=== PATIENT | female | born 1990 | race Hispanic/Latino ===

== ENCOUNTER 2019-10-27 09:25 | Outpatient (CLI) | payer OTHER ==
--- NOTE | 2019-10-27 13:49 | ULT ---
OB ULTRASOUND GREATER THAN 14 WEEKS: HISTORY: Anatomy. FINDINGS: Single viable intrauterine fetus noted in breech presentation. Cervix appears unremarkable. Placent a appears to be primarily right-sided with anterior and posterior locations. heart rate 132 b. p.m. Amniotic fluid is within normal limits. Cervical length is unremarkable. ANATOMY: Visualized brain, 4-chamber heart, 3-vessel cord, stomach, bladder, kidneys, spine, and extremi ty regions were unremarkable. BIOMETRY: BPD 4.2 cm-18 weeks 6 days Head circumference 16.1 cm-19 weeks 0 days Abdominal circumference 13.5 cm-19 weeks 0 days Femur length 2.8 cm-18 weeks 4 days IMPRESSION: Single viable intrauterine fetus at 18 weeks 6 days. Estimated date of delivery 03/23/2020. Estimate d weight 255 gm. POS: RRE
== END 2019-10-27 09:26 | disposition home or self-care (01) ==
LOC: BICULT 09:25
PROVIDERS: ATTEND Family Medicine
DX: O09.92 Supervision of high risk pregnancy, unspecified, second trimester (principal); Z3A.18 18 weeks gestation of pregnancy
CPT/HCPCS: 76805

== ENCOUNTER 2020-03-11 09:39 | Outpatient (CLI) | payer OTHER ==
[2020-03-12 12:00] LABS: SARS-CoV-2 MS2 Positive; SARS-CoV-2 N Gene Negative; SARS-CoV-2 S Gene Negative; SARS-CoV-2 by NAA Not Detected (NotDetected); SARS-CoV-2 orf1ab Negative
== END 2020-03-11 09:40 | disposition home or self-care (01) ==
LOC: LABBT 09:39
PROVIDERS: ATTEND Family Medicine
DX: Z20.828 Contact with and (suspected) exposure to other viral communicable diseases (principal)
CPT/HCPCS: 87635; U0003

== ENCOUNTER 2020-03-15 10:08 | Inpatient (IN) | payer MEDICAID, OTHER, SELFPAY ==
[2020-03-15] MEDS ORDERED: Ondansetron PF 4 MG/2 ML Vial IVP PRN ×4 (10:43→16:42)
[2020-03-15] MEDS ORDERED: Bicitra 30 ML UDCUP PO SCH (10:43)
[2020-03-15] MEDS ORDERED: Promethazine HCl 25 MG/ML VIAL IM PRN ×4 (10:43→16:42)
[2020-03-15] MEDS ORDERED: hydrALAZINE 20 MG/ML VIAL SLOW IVP PRN ×2 (10:43→16:42)
[2020-03-15] MEDS ORDERED: CEFAZOLIN 2 GM in Premix Bag 1 BAG IVPB SCH (10:43)
[2020-03-15] MEDS: Lactated Ringer's 1,000 ML IV SCH ×2 (10:50→23:33)
[2020-03-15 11:20] LABS: Hemoglobin 11.3 g/dL (12.0-16.0); Mean Corpuscular HGB CONC 33.7 g/dL (32.0-36.0); Mean Corpuscular Hemoglobin 28.9 pg (27.0-31.0); Mean Corpuscular Volume 85.8 fL (78.0-98.0); Mean Platelet Volume 8.8 fL (7.4-10.4); Platelet Count 234 thou/uL (130-400); RBC Distribution Width 13.6 % (11.5-14.5); White Blood Cell (WBC) Count 7.6 thou/uL (4.8-10.8)
[2020-03-15 11:22] VITALS: BMI 23.8
[2020-03-15] MEDS ORDERED: Bicitra 30 ML UDCUP ONE (11:34)
[2020-03-15] MEDS ORDERED: ePHEDrine 50 MG/ML VIAL ONE (11:39)
[2020-03-15] MEDS ORDERED: Morphine PF 10 MG/10 ML VIAL ONE (11:39)
[2020-03-15] MEDS ORDERED: Oxytocin 10 UNITS/ML VIAL ONE (11:39)
[2020-03-15] MEDS ORDERED: PHENYLEPHRINE-NS 100 MCG/ML 10 ML SYRINGE ONE ×2 (11:39→12:30)
[2020-03-15 11:59] LABS: Syphilis Antibody Nonreactive (Nonreactive); Syphilis Antibody Index 0.02 S/CO (<1.00 Non-Reactive)
[2020-03-15 12:00] LABS: HBSAg Index 0.16 S/CO (0-0.99); Hep B Surf Ag Non-Reactive S/CO (NonReactive)
[2020-03-15] MEDS ORDERED: Ondansetron PF 4 MG/2 ML Vial ONE ×2 (12:30→13:27)
[2020-03-15] MEDS ORDERED: Dexamethasone 20 MG/5 ML VIAL ONE (12:30)
[2020-03-15] MEDS ORDERED: Succinylcholine 200 MG/10 ml SYRINGE FS ONE (12:30)
[2020-03-15] MEDS ORDERED: EPHEDRINE 25 MG/5 ML SYRINGE ONE (12:30)
[2020-03-15] MEDS ORDERED: PROPOFOL 200 MG/20 ML VIAL ONE (12:30)
[2020-03-15] MEDS ORDERED: Methylergonovine 0.2 MG/ML VIAL ONE ×2 (13:18→15:03)
[2020-03-15] MEDS ORDERED: Fentanyl 100 MCG/2 ML VIAL ONE ×4 (13:23→14:31)
[2020-03-15] MEDS ORDERED: Carboprost 250 MCG/ML AMP ONE ×2 (13:23→15:03)
[2020-03-15] MEDS ORDERED: Misoprostol 200 MCG TAB ONE ×2 (13:23→15:10)
[2020-03-15] MEDS ORDERED: Dexamethasone 4 mg/ml Vial ONE (13:27)
[2020-03-15] MEDS ORDERED: Naloxone HCl 0.4 mg/ml Vial IVP PRN ×2 (14:06)
[2020-03-15] MEDS ORDERED: Meperidine HCl/PF 25 MG/ML VIAL SLOW IVP PRN (14:06)
[2020-03-15] MEDS ORDERED: HYDROmorphone 2 MG/ML VIAL SLOW IVP PRN (14:06)
[2020-03-15] MEDS ORDERED: Ondansetron HCl/PF 4 MG/2 ML Vial IVP PRN (14:06)
[2020-03-15] MEDS ORDERED: L&D-Morphine 4 MG/ML VIAL SLOW IVP PRN (14:06)
[2020-03-15] MEDS ORDERED: Ketorolac Tromethamine 30 MG/ML VIAL IVP PRN (14:06)
[2020-03-15] MEDS ORDERED: Promethazine HCl 25 MG SUPP PR PRN (14:06)
[2020-03-15] MEDS ORDERED: diphenhydrAMINE 50 MG/ML VIAL IVP PRN ×2 (14:06→14:28)
[2020-03-15] MEDS ORDERED: Naloxone HCl 0.4 mg/ml Vial IV PRN ×2 (14:06→14:28)
[2020-03-15] MEDS ORDERED: Ketorolac Tromethamine 30 MG/ML VIAL IVP SCH (14:15)
[2020-03-15] MEDS ORDERED: Communication Order-Pharmacy FS SCH ×2 (14:15→14:30)
[2020-03-15] MEDS ORDERED: Ketorolac Tromethamine 30 MG/ML VIAL ONE (14:25)
[2020-03-15] MEDS ORDERED: fentaNYL Citrate/PF 2,000 MCG in Sodium Chloride 0.9% 60 ML IV PRN (14:28)
[2020-03-15] MEDS ORDERED: diphenhydrAMINE 25 MG CAP PO PRN ×2 (14:28→16:42)
[2020-03-15] MEDS ORDERED: diphenhydrAMINE 50 MG/ML VIAL IM PRN (14:28)
[2020-03-15] MEDS ORDERED: Zolpidem Tartrate 5 MG TAB PO PRN (14:28)
[2020-03-15] MEDS ORDERED: Fentanyl 100 MCG/2 ML VIAL SLOW IVP SCH (15:45)
[2020-03-15] MEDS ORDERED: NS / Oxytocin 40 units/1000ml 1,000 ML ONE (16:08)
[2020-03-15] MEDS ORDERED: Bisacodyl 10 MG SUPP PR PRN (16:42)
[2020-03-15] MEDS ORDERED: Meperidine HCl/PF 25 MG/ML VIAL IM PRN (16:42)
[2020-03-15] MEDS ORDERED: HYDROcodone/Acetaminophen 5/325 mg Tablet PO PRN (16:42)
[2020-03-15] MEDS ORDERED: Simethicone Chewable 80 MG TAB PO PRN (16:42)
[2020-03-15] MEDS ORDERED: Lanolin Ointment 7 GM TUBE TOP PRN (16:42)
[2020-03-15] MEDS ORDERED: NS / Oxytocin 40 units/1000ml 1,000 ML IV SCH (16:42)
[2020-03-15] MEDS: Ketorolac Tromethamine 30 MG/ML VIAL IVP SCH (21:43)
[2020-03-16] MEDS: Docusate Calcium (SURFAK) 240 MG CAP PO SCH ×3 (03:05→21:29)
[2020-03-16] MEDS: Ferrous Sulfate 325 MG TAB PO SCH ×3 (03:05→21:29)
[2020-03-16] MEDS: Ketorolac Tromethamine 30 MG/ML VIAL IVP SCH ×2 (03:06→03:53)
[2020-03-16 07:18] LABS: Hemoglobin 8.8 g/dL (12.0-16.0); Mean Corpuscular HGB CONC 33.9 g/dL (32.0-36.0); Mean Corpuscular Hemoglobin 29.3 pg (27.0-31.0); Mean Corpuscular Volume 86.4 fL (78.0-98.0); Mean Platelet Volume 7.6 fL (7.4-10.4); Platelet Count 244 thou/uL (130-400); RBC Distribution Width 13.6 % (11.5-14.5)
[2020-03-16] MEDS: Prenatal Vitamin 1 TAB PO SCH (08:49)
[2020-03-16] MEDS ORDERED: Adacel (T-DAP) 0.5 ML SYRINGE IM ONE (09:00)
[2020-03-16] MEDS: Ibuprofen 800 MG TAB PO SCH ×2 (13:42→21:29)
[2020-03-16] MEDS: HYDROcodone/Acetaminophen 5/325 mg Tablet PO PRN (17:07)
[2020-03-17] MEDS: HYDROcodone/Acetaminophen 5/325 mg Tablet PO PRN (00:36)
[2020-03-17] MEDS: Ibuprofen 800 MG TAB PO SCH ×2 (05:03→13:55)
--- NOTE | 2020-03-17 08:00 | OP ---
OPERATIVE REPORT DATE OF PROCEDURE: 03/15/2020 SURGEON: Wade Rosenthal MD MACHINE PAINT MIXER SURGEON: Emma Frances MD PROCEDURE PERFORMED: Repeat section. PREOPERATIVE DIAGNOSES: 1. Term intrauterine . 2. Prior x1 with vertical skin & low-transverse uterine incisions. POSTOPERATIVE DIAGNOSES: 1. Term intrauterine , delivered. 2. History of prior with vertical skin and low-transverse uterus incision, now x2. ANESTHESIA: General. INDICATIONS: The patient is a 29-year-old G2, P1-0-0-1 female at 39.2 weeks' gestation, who presents for a repeat scheduled . PROCEDURE IN DETAIL: After risks, benefits, and alternatives were explained to the patient, she gave informed consent. Preoperative antibiotics included cefazolin 2 g IV. The patient was taken to the operating room. General anesthesia was initiated after failed spinal anesthesia. She was placed in a supine position with left tilt and prepped and draped in usual sterile fashion. A vertical skin incision was made with a scalpel and carried down to the level of the fascia, which was sharply nicked. The fascia cut was extended bilaterally with a scalpel. The lateral edges of the cut fascia were elevated and the recti were divided digitally and retracted manually. The peritoneum was entered bluntly and retracted manually. A bladder blade was placed. A low-transverse score was made with a scalpel and the uterus was entered in the midline with a scalpel. Clear fluid was seen. The hysterotomy was extended manually. The was noted to be vertex and was easily delivered by fundal pressure. Mouth and nares were bulb suctioned. Cord clamped and cut and grossly normal male , was handed to waiting nurse. Cord blood was obtained. Placenta was spontaneously delivered and found to be intact with a 3-vessel cord and discarded. The uterus was externalized and the endometrium was curetted with a dry lap. Following externalization, the uterus was noted to be atonic, so 0.2 mg of Methergine was administered IM. The bladder blade was then replaced and the uterus was closed with a running locking 1-0 Monocryl suture. Following this, hemostasis was noted, but the uterus remained atonic, therefore, 250 mcg of IV Hemabate was administered. Abdomen was then irrigated with saline and suctioned free of clots. The anterior surface of the uterus was then covered with 4 sheets of Seprafilm and the uterus was internalized and the hysterotomy was again noted to be hemostatic. The peritoneum was closed with a running nonlocking 3-0 Vicryl suture. The fascia was closed with a running nonlocking 0 PDS suture. The subcutaneous tissue was irrigated and there were no free bleeders. The subcutaneous tissue was then closed with a running nonlocking 3-0 Vicryl suture. The skin was then approximated with miguelito and a pressure dressing was placed. All counts were correct. The patient tolerated the procedure well, and was taken to the recovery room in stable condition. QUANTITATIVE BLOOD LOSS: 588mL COMPLICATIONS: None. SPECIMENS: Cord blood sent to lab for blood type. FINDINGS: Grossly normal male with Apgars of 8 and 9. Grossly normal placenta with 3-vessel cord discarded. DRAINS: Weinberg to gravity draining clear urine. Job ID: [id number] MTDD
[2020-03-17] MEDS: Docusate Calcium (SURFAK) 240 MG CAP PO SCH (08:45)
[2020-03-17] MEDS: Ferrous Sulfate 325 MG TAB PO SCH (08:45)
[2020-03-17] MEDS: Prenatal Vitamin 1 TAB PO SCH (08:45)
[2020-03-17 12:06] VITALS: BP 96/61; TEMP 98.4
--- NOTE | 2020-03-19 04:30 | PQF ---
CLINICAL DOCUMENTATION CLARIFICATION FORM: Dear : Wade Rosenthal Date / Time: 03/19/2020 Please exercise your independent, professional judgment in responding to the clarification form. Clinical indicators are provided on the bottom of this form for your review Please check appropriate box(es): [ ] Atonic uterus with hemorrhage [ ] Atonic uterus without hemorrhage [ ] Other diagnosis [ ] Unable to determine In addition, please specify: Present on Admission (POA): [ ] Yes [ ] No [ ] Unable to determine To be completed by CDI/Coding staff for physician review: Present Clinical Indicators - Signs / Symptoms / Labs Results and Location in Medical Record [ x ] Following externalization, the uterus was noted to be atonic, so 0.2 mg of Methergine was administerd IM. OP report 03/15 by Wade Rosenthal MD [ x ] Following this, hemostasis was noted, but the uterus remained atonic, therefore 250 mcg of IV Hemabate was administered OP report 03/15 by Wade Rosenthal MD [ x ] Hemoglobin/hematocrit 11.3/33.5 on 03/15 and 8.8/25.9 on 03/16 Laboratory Present Risk Factors Results and Location in Medical Record [ x ] section delivery, blood loss is 588 ml OP report 03/15 by Wade Rosenthal MD Present Treatments Results and Location in Medical Record [ x ] IV Hemabate 250 mcg and IM Methergine 0.2 mg OP report 03/15 by Wade Rosenthal MD CDS/Glassware Maker Signature: [id number] Phone #: Date/Time: 03/19/2020 This is a permanent part of the Medical Record [facility]
== END 2020-03-17 16:15 | disposition home or self-care (01) | DRG 788 ==
LOC: L&D 10:08 → 3SW 16:57
PROVIDERS: ADMIT Family Medicine; ATTEND Family Medicine
PROC: 10D00Z1 Extraction of Products of Conception, Low, Open Approach (ICD-10-PCS; principal; 2020-03-15)
DX: O34.211 Maternal care for low transverse scar from previous cesarean delivery (principal); O89.4 Spinal and epidural anesthesia-induced headache during the puerperium; O62.2 Other uterine inertia; Z3A.39 39 weeks gestation of pregnancy; Z37.0 Single live birth
CPT/HCPCS: 36415; 51702; 85027; 86780; 86850; 86870; 86900; 86901; 86905; 86922; 87340; J0690; J1100; J1885; J2210; J2270; J2405; J2704; J3010; J3490